=== PATIENT | male | born 1965 | race Two or more races ===

== ENCOUNTER 2018-08-08 13:29 | Inpatient (IN) | payer OTHER ==
[~2018-08-08] VITALS: Ht 180.3 cm; Wt 90.7 kg
[2018-08-08] MEDS ORDERED: fentaNYL PF VIAL 100 MCG/2 ML VIAL IV ONE (14:30)
[2018-08-08] MEDS ORDERED: VANCOMYCIN 1GM IVPB FOR OMNI 250 ML IV ONE (14:30)
--- NOTE | 2018-08-08 14:36 | PHYS DOC ---
Past Medical History Past Medical History: Anxiety, GERD, High Cholesterol, Hypertension, Other Additional Past Medical Histor: CELLULITIS,ATHLETE'S FOOT Past Surgical History: Other Additional Past Surgical Histo: SHOULDER Additional Information: 0.5 PPD Alcohol Use: Heavy Additional Information: DRINKS 10 TO 15 BEERS & SHIWKEY DAILY, ON WEEKENDS DRINKS 20 BEERS & A PINT OF WHISKEY Drug Use: None Adult General Chief Complaint Chief Complaint: TOE PROBLEM HPI HPI 53-year-old male presents to ER with complaints of right foot redness and swelling. Patient reports he was seen on 08/06/18 at [facility] and given a "strong antibiotic shot" and prescribed Bactrim DS and Lotrimin cream. Patient reports yesterday they drove to [place] and returned home today and symptoms have worsened. Patient denies fever or chills, nausea or vomiting, fatigue, chest pain, or palpitations. Patient reports he has had some swelling and right lower leg extending into the foot. Patient denies inability to ambulate but does report he's had increased pain with walking. Review of Systems Review of Systems Constitutional: Denies fever or chills. Denies fatigue Eyes: Denies change in visual acuity, redness, or eye pain [] HENT: Denies nasal congestion or sore throat [] Respiratory: Denies cough or shortness of breath [] Cardiovascular: Denies chest pain or palpitations GI: Denies abdominal pain, nausea, vomiting, bloody stools or diarrhea [] : Denies dysuria or hematuria [] Musculoskeletal: Denies back pain. Reports redness, swelling, and warmth and of right foot with wound on right fourth toe w/drainage. Swelling into rt de jesus Integument: Denies rash or skin lesions [] Neurologic: Denies headache, focal weakness or sensory changes [] All other systems were reviewed and found to be within normal limits, except as documented in this note. Current Medications Current Medications Current Medications Medications (Trade) Dose Ordered Sig/Ara Start Time Stop Time Status Last Admin Dose Admin Fentanyl Citrate (Fentanyl 2ml Vial) 50 mcg 1X ONCE 08/08/18 14:30 08/08/18 14:37 DC 08/08/18 14:54 50 MCG Piperacillin Sod/ Tazobactam Sod 3.375 gm/Sodium Chloride 50 ml @ 100 mls/hr 1X ONCE 08/08/18 15:00 08/08/18 15:29 DC 08/08/18 14:54 100 MLS/HR Vancomycin HCl 250 ml @ 250 mls/hr 1X ONCE 08/08/18 14:30 08/08/18 15:29 UNV Vancomycin HCl 2 gm/Sodium Chloride 500 ml @ 250 mls/hr 1X ONCE 08/08/18 15:00 08/08/18 16:59 08/08/18 15:18 250 MLS/HR Allergies Allergies Allergies Coded Allergies Type Severity Reaction Last Updated Verified No Known Drug Allergies 08/08/18 No Physical Exam Physical Exam Constitutional: Well developed, well nourished, no acute distress, non-toxic appearance. [] HENT: Normocephalic, atraumatic, bilateral ears normal, oropharynx moist, no oral exudates, nose normal. [] Eyes: PERRLA, conjunctiva normal, no discharge. [] Neck: Normal range of motion, no tenderness, supple, no stridor. [] Cardiovascular: Tachycardic heart rate/rhythm- HR 104 on exam, no murmur [] Lungs & Thorax: Bilateral breath sounds clear to auscultation. Resp. equal/ nonlabored Abdomen: Bowel sounds normal, soft, no tenderness, no masses, no pulsatile masses. [] Skin: Warm, dry, no erythema, no rash. [] Back: No tenderness, no CVA tenderness. [] Extremities: No cyanosis, no clubbing, ROM intact. Rt 4th toe w/medial wound with serosanguineous drainage on initial exam which wound cx was obtained from- erythema on dorsal surface of foot w/warmth. No wounds of sole of rt foot. Swelling in rt lower de jesus. Calf size symmetric- no tenderness in bilat. calves. Rt dorsal pedis/pedal 2+ Neurologic: Alert and oriented X 3, normal motor function, normal sensory function, no focal deficits noted. [] Psychologic: Affect normal, judgement normal, mood normal. [] Current Patient Data Vital Signs Vital Signs Date Time Temp Pulse Resp B/P (MAP) Pulse Ox O2 Delivery O2 Flow Rate FiO2 08/08/18 15:13 98 22 154/89 (110) 97 Room Air 08/08/18 13:35 98.9 98.9 Lab Values Laboratory Tests Test 08/08/18 14:42 White Blood Count 8.2 x10^3/uL (4.0-11.0) Red Blood Count 4.78 x10^6/uL (4.30-5.70) Hemoglobin 15.6 g/dL (13.0-17.5) Hematocrit 44.7 % (39.0-53.0) Mean Corpuscular Volume 93 fL (79-100) Mean Corpuscular Hemoglobin 33 pg (25-35) Mean Corpuscular Hemoglobin Concent 35 g/dL (31-37) Red Cell Distribution Width 12.7 % (11.5-14.5) Platelet Count 141 x10^3/uL (140-400) Neutrophils (%) (Auto) 75 % (31-73) H Lymphocytes (%) (Auto) 16 % (24-48) L Monocytes (%) (Auto) 6 % (0-9) Eosinophils (%) (Auto) 2 % (0-3) Basophils (%) (Auto) 1 % (0-3) Neutrophils # (Auto) 6.2 x10^3uL (1.8-7.7) Lymphocytes # (Auto) 1.3 x10^3/uL (1.0-4.8) Monocytes # (Auto) 0.5 x10^3/uL (0.0-1.1) Eosinophils # (Auto) 0.2 x10^3/uL (0.0-0.7) Basophils # (Auto) 0.1 x10^3/uL (0.0-0.2) Sodium Level 139 mmol/L (136-145) Potassium Level 3.6 mmol/L (3.5-5.1) Chloride Level 102 mmol/L (98-107) Carbon Dioxide Level 23 mmol/L (21-32) Anion Gap 14 (6-14) Blood Urea Nitrogen 16 mg/dL (8-26) Creatinine 1.1 mg/dL (0.7-1.3) Estimated GFR (Cockcroft-Gault) 69.8 BUN/Creatinine Ratio 15 (6-20) Glucose Level 186 mg/dL (70-99) H Lactic Acid Level 1.9 mmol/L (0.4-2.0) Calcium Level 9.1 mg/dL (8.5-10.1) Total Bilirubin 0.5 mg/dL (0.2-1.0) Aspartate Amino Transferase (AST) 26 U/L (15-37) Alanine Aminotransferase (ALT) 56 U/L (16-63) Alkaline Phosphatase 123 U/L (46-116) H Total Protein 7.8 g/dL (6.4-8.2) Albumin 3.7 g/dL (3.4-5.0) Albumin/Globulin Ratio 0.9 (1.0-1.7) L Laboratory Tests 08/08/18 14:42 Laboratory Tests 08/08/18 14:42 EKG EKG [] Radiology/Procedures Radiology/Procedures PROCEDURE: FOOT RIGHT 3V Examination: 3 views of the right foot HISTORY: History of right fourth toe cellulitis. COMPARISON: None available FINDINGS: The alignment of the tarsal bones, tarsometatarsal joints, metatarsophalangeal, interphalangeal grossly appears unremarkable.There is mild soft tissue swelling identified in the fourth toe region probably cellulitis. No evidence of cortical disruption to suggest osteomyelitis. IMPRESSION: 1. Mild soft tissue swelling identified in the fourth toe region likely cellulitis. Electronically signed by: Jese Najera MD (08/08/2018 2:42 PM) [facility] DICTATED and SIGNED BY: JESE NJAERA MD DATE: 08/08/18 8782 PROCEDURE: VENOUS LOWER EXTREMITY RIGHT Examination: Right Lower Extremity Venous Doppler Ultrasound History: Right foot cellulitis, pain Comparison: None Procedure: Pitts scale, color flow 2D and spectal waveform analysis images are obtained with and without compression in the area of the common femoral vein, superficial femoral vein - femoral vein junction, main femoral vein (superficial femoral vein) and popliteal vein. Veins of the proximal calf are also imaged. Findings: There is normal duplex flow, color flow and compressibility of all visualized vein segments. No evidence of deep venous thrombus is present. Impression: No evidence of DVT in the visualized right lower extremity venous system. Electronically signed by: Jese Najera MD (08/08/2018 3:20 PM) [facility] DICTATED and SIGNED BY: JSEE NAJERA MD DATE: 08/08/18 1538 Course & Med Decision Making Course & Med Decision Making Pertinent Labs and Imaging studies reviewed. (See chart for details) On initial exam with patient's presentation discussed admission for further care and IV antibiotics and patient is agreeable with this plan. Blood cultures were obtained and patient was started on IV vancomycin and Zosyn while in the ER. Pt was given dose of Fentanyl for pain. Pt had xray of rt foot showing soft tissue swelling reported likely cellulitis- venous US rt LE neg. for DVT. WBCs NL at 8.2 and lactice 1.9- other labs unremarkable as well. 1520: Spoke with Dr. Alcocer, pt's PCP and discussed pt's case and admission plan. Pt has remained neuro/vascular stable in lower extremities while in ER. Wound cx was obtained from rt 4th toe drainage and is pending at time of admit. Dragon Disclaimer Dragon Disclaimer This electronic medical record was generated, in whole or in part, using a voice recognition dictation system. Departure Departure Impression: Primary Impression: Cellulitis of foot, right Disposition: ADMITTED INPATIENT Admitting Physician: Lon Alcocer Condition: STABLE Referrals: LON ALCOCER MD (PCP) MATTHEW FORMAN [employer] Aug 08, 2018 14:36
--- NOTE | 2018-08-08 14:46 | RAD ---
Examination: 3 views of the right foot HISTORY: History of right fourth toe cellulitis. COMPARISON: None available FINDINGS: The alignment of the tarsal bones, tarsometatarsal joints, metatarsophalangeal, interphalangeal grossly appears unremarkable.There is mild soft tissue swelling identified in the fourth toe region probably cellulitis. No evidence of cortical disruption to suggest osteomyelitis. IMPRESSION: 1. Mild soft tissue swelling identified in the fourth toe region likely cellulitis. Electronically signed by: Jese Najera MD (08/08/2018 2:42 PM) [facility]
[2018-08-08 14:53] LABS: BASO # 0.1 x10^3/uL (0.0-0.2); BASO % 1 % (0-3); EOS # 0.2 x10^3/uL (0.0-0.7); EOS % 2 % (0-3); HEMATOCRIT 44.7 % (39.0-53.0); HEMOGLOBIN 15.6 g/dL (13.0-17.5); LYMPH # 1.3 x10^3/uL (1.0-4.8); LYMPH % 16 % (24-48); MEAN CORPUSCULAR HEMOGLOBIN 33 pg (25-35); MEAN CORPUSCULAR HGB CONC 35 g/dL (31-37); MEAN CORPUSCULAR VOLUME 93 fL (79-100); MONO # 0.5 x10^3/uL (0.0-1.1); MONO % 6 % (0-9); NEUT # 6.2 x10^3uL (1.8-7.7); NEUT % 75 % (31-73); PLATELET COUNT 141 x10^3/uL (140-400); RED BLOOD COUNT 4.78 x10^6/uL (4.30-5.70); RED CELL DISTRIBUTION WIDTH 12.7 % (11.5-14.5); WHITE BLOOD COUNT 8.2 x10^3/uL (4.0-11.0)
[2018-08-08] MEDS ORDERED: PIPERACILLIN/TAZOBACTAM 3.375 GM in IV NORMAL SALINE 50ML 50 ML IV ONE (15:00)
[2018-08-08] MEDS ORDERED: VANCOMYCIN 2 GM in IV NORMAL SALINE 500ML BAG 500 ML IV ONE (15:00)
[2018-08-08 15:03] LABS: CALCIUM 9.1 mg/dL (8.5-10.1); CREATININE 1.1 mg/dL (0.7-1.3); GFR 69.8; POTASSIUM 3.6 mmol/L (3.5-5.1)
[2018-08-08 15:08] LABS: ALBUMIN 3.7 g/dL (3.4-5.0); ALBUMIN/GLOBULIN RATIO 0.9 (1.0-1.7); TOTAL BILIRUBIN 0.5 mg/dL (0.2-1.0); TOTAL PROTEIN 7.8 g/dL (6.4-8.2)
--- NOTE | 2018-08-08 15:24 | RAD ---
Examination: Right Lower Extremity Venous Doppler Ultrasound History: Right foot cellulitis, pain Comparison: None Procedure: Pitts scale, color flow 2D and spectal waveform analysis images are obtained with and without compression in the area of the common femoral vein, superficial femoral vein - femoral vein junction, main femoral vein (superficial femoral vein) and popliteal vein. Veins of the proximal calf are also imaged. Findings: There is normal duplex flow, color flow and compressibility of all visualized vein segments. No evidence of deep venous thrombus is present. Impression: No evidence of DVT in the visualized right lower extremity venous system. Electronically signed by: Jese Najera MD (08/08/2018 3:20 PM) [facility]
[2018-08-08] MEDS ORDERED: ACETAMINOPHEN 325 MG TABLET. PO PRN (15:30)
[2018-08-08 16:55] VITALS: BP 158/101
[2018-08-08] MEDS: fentaNYL PF VIAL 100 MCG/2 ML VIAL IV PRN (17:05)
[2018-08-08] MEDS ORDERED: PIP/TAZO PER PHARMACY MC PRN (18:00)
[2018-08-08] MEDS ORDERED: cloNIDine HCL 0.1 MG TABLET PO PRN (18:00)
[2018-08-08] MEDS ORDERED: HYDROcodone/APAP 7.5/325MG 1 TAB TABLET PO PRN (18:00)
[2018-08-08] MEDS: ENOXAPARIN 40 MG/0.4 ML SYRINGE. SQ SCH (18:00)
[2018-08-08] MEDS ORDERED: METO-269 PO (18:04)
[2018-08-08] MEDS ORDERED: OMEP20TA63 PO (18:04)
[2018-08-08] MEDS ORDERED: ALPR0.5T PO (18:04)
[2018-08-08] MEDS ORDERED: ATOR10TA PO (18:04)
[2018-08-08 19:00] VITALS: BP 129/85
[2018-08-08] MEDS: PIPERACILLIN/TAZOBACTAM 3.375 GM in IV NORMAL SALINE 50ML 50 ML IV SCH ×2 (21:00→23:47)
[2018-08-08] MEDS: HYDROcodone/APAP 7.5/325MG 1 TAB TABLET PO PRN (21:00)
[2018-08-08] MEDS: ATORVASTATIN CALCIUM 10 MG TABLET. PO SCH (21:00)
[2018-08-08] MEDS: ALPRAZolam 0.5 MG TABLET PO PRN (21:10)
[2018-08-08 23:00] VITALS: BP 110/64
[2018-08-09 03:00] VITALS: BP 133/84
[2018-08-09] MEDS: HYDROcodone/APAP 7.5/325MG 1 TAB TABLET PO PRN ×3 (03:55→16:33)
[2018-08-09] MEDS: fentaNYL PF VIAL 100 MCG/2 ML VIAL IV PRN ×2 (04:07→14:43)
[2018-08-09] MEDS: PIPERACILLIN/TAZOBACTAM 3.375 GM in IV NORMAL SALINE 50ML 50 ML IV SCH ×3 (05:48→18:18)
[2018-08-09 06:32] LABS: BASO % 1 % (0-3); EOS # 0.2 x10^3/uL (0.0-0.7); EOS % 5 % (0-3); HEMATOCRIT 44.2 % (39.0-53.0); HEMOGLOBIN 15.1 g/dL (13.0-17.5); LYMPH # 0.9 x10^3/uL (1.0-4.8); LYMPH % 23 % (24-48); MEAN CORPUSCULAR HEMOGLOBIN 33 pg (25-35); MEAN CORPUSCULAR HGB CONC 34 g/dL (31-37); MEAN CORPUSCULAR VOLUME 96 fL (79-100); MONO # 0.3 x10^3/uL (0.0-1.1); MONO % 7 % (0-9); NEUT # 2.5 x10^3uL (1.8-7.7); NEUT % 65 % (31-73); PLATELET COUNT 132 x10^3/uL (140-400); RED CELL DISTRIBUTION WIDTH 12.8 % (11.5-14.5); WHITE BLOOD COUNT 3.9 x10^3/uL (4.0-11.0)
[2018-08-09 07:00] VITALS: BP 119/86
[2018-08-09] MEDS: PANTOPRAZOLE 40 MG TABLET.DR. PO SCH (08:26)
[2018-08-09] MEDS: METOPROLOL SUCC 24HR ER 50 MG TAB.ER.24H. PO SCH (08:28)
[2018-08-09 08:45] LABS: CALCIUM 8.4 mg/dL (8.5-10.1); GFR 77.9; POTASSIUM 4.5 mmol/L (3.5-5.1)
[2018-08-09] MEDS ORDERED: DOCUSATE SODIUM 100 MG CAPSULE. PO PRN (09:45)
[2018-08-09] MEDS: DOCUSATE SODIUM 100 MG CAPSULE. PO PRN (10:06)
[2018-08-09 11:00] VITALS: BP 127/80
--- NOTE | 2018-08-09 13:47 | PDOC ---
Infectious Disease Note Vital Sign Vital Signs Vital Signs Date Time Temp Pulse Resp B/P (MAP) Pulse Ox O2 Delivery O2 Flow Rate FiO2 08/09/18 11:06 Room Air 08/09/18 11:00 97.5 68 18 127/80 (96) 97 97.5 Labs Lab Laboratory Tests Test 08/08/18 14:42 08/09/18 05:05 08/09/18 08:20 White Blood Count 8.2 x10^3/uL (4.0-11.0) 3.9 x10^3/uL (4.0-11.0) Red Blood Count 4.78 x10^6/uL (4.30-5.70) 4.60 x10^6/uL (4.30-5.70) Hemoglobin 15.6 g/dL (13.0-17.5) 15.1 g/dL (13.0-17.5) Hematocrit 44.7 % (39.0-53.0) 44.2 % (39.0-53.0) Mean Corpuscular Volume 93 fL (79-100) 96 fL (79-100) Mean Corpuscular Hemoglobin 33 pg (25-35) 33 pg (25-35) Mean Corpuscular Hemoglobin Concent 35 g/dL (31-37) 34 g/dL (31-37) Red Cell Distribution Width 12.7 % (11.5-14.5) 12.8 % (11.5-14.5) Platelet Count 141 x10^3/uL (140-400) 132 x10^3/uL (140-400) Neutrophils (%) (Auto) 75 % (31-73) 65 % (31-73) Lymphocytes (%) (Auto) 16 % (24-48) 23 % (24-48) Monocytes (%) (Auto) 6 % (0-9) 7 % (0-9) Eosinophils (%) (Auto) 2 % (0-3) 5 % (0-3) Basophils (%) (Auto) 1 % (0-3) 1 % (0-3) Neutrophils # (Auto) 6.2 x10^3uL (1.8-7.7) 2.5 x10^3uL (1.8-7.7) Lymphocytes # (Auto) 1.3 x10^3/uL (1.0-4.8) 0.9 x10^3/uL (1.0-4.8) Monocytes # (Auto) 0.5 x10^3/uL (0.0-1.1) 0.3 x10^3/uL (0.0-1.1) Eosinophils # (Auto) 0.2 x10^3/uL (0.0-0.7) 0.2 x10^3/uL (0.0-0.7) Basophils # (Auto) 0.1 x10^3/uL (0.0-0.2) 0.0 x10^3/uL (0.0-0.2) Sodium Level 139 mmol/L (136-145) 139 mmol/L (136-145) Potassium Level 3.6 mmol/L (3.5-5.1) 4.5 mmol/L (3.5-5.1) Chloride Level 102 mmol/L (98-107) 103 mmol/L (98-107) Carbon Dioxide Level 23 mmol/L (21-32) 27 mmol/L (21-32) Anion Gap 14 (6-14) 9 (6-14) Blood Urea Nitrogen 16 mg/dL (8-26) 17 mg/dL (8-26) Creatinine 1.1 mg/dL (0.7-1.3) 1.0 mg/dL (0.7-1.3) Estimated GFR (Cockcroft-Gault) 69.8 77.9 BUN/Creatinine Ratio 15 (6-20) Glucose Level 186 mg/dL (70-99) 117 mg/dL (70-99) Lactic Acid Level 1.9 mmol/L (0.4-2.0) Calcium Level 9.1 mg/dL (8.5-10.1) 8.4 mg/dL (8.5-10.1) Total Bilirubin 0.5 mg/dL (0.2-1.0) Aspartate Amino Transf (AST/SGOT) 26 U/L (15-37) Alanine Aminotransferase (ALT/SGPT) 56 U/L (16-63) Alkaline Phosphatase 123 U/L (46-116) Total Protein 7.8 g/dL (6.4-8.2) Albumin 3.7 g/dL (3.4-5.0) Albumin/Globulin Ratio 0.9 (1.0-1.7) Objective Assessment Cellulitis of right foot Tinea pedis Leukopenia HTN Plan Plan of Care Continue vanc and Zosyn Add anti-fungal agent, fluconazole Repeat CBC in am Monitor renal function closely f/u culture Local wound care Await Ortho eval D/w Dr. Abarca Thank you Pt seen and examined. Chart reviewed in detail. 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 Agree with above plan GENEVIEVE GOSS APRN Aug 09, 2018 13:47 ENRIQUE ABARCA MD Aug 09, 2018 19:02
[2018-08-09] MEDS ORDERED: VANCOMYCIN 2 GM in IV NORMAL SALINE 500ML BAG 500 ML IV ONE (14:00)
[2018-08-09 15:00] VITALS: BP 114/83
[2018-08-09] MEDS: VANCOMYCIN PER PHARMACY MC PRN ×2 (15:41→15:43)
--- NOTE | 2018-08-09 16:16 | HP ---
ADMIT DATE: 08/08/2018 CHIEF COMPLAINT: Right foot pain. HISTORY OF PRESENT ILLNESS AND HOSPITAL COURSE: This patient is a 53-year-old male who states that he is having issues with athlete's foot and scratched to the point where he developed a sore. He used [id number] preparations, but his foot became increasingly painful. He noticed drainage consistent with infection and pus. He went to urgent care where he was treated for toe ulcer and mild cellulitis. The symptoms did not improve with Bactrim-DS. He apparently was also given a shot of Rocephin with plans to receive Rocephin as an outpatient, but the patient did not follow up. He did travel by car to [facility] for several days and his foot became worse. He came back to [place] where he was seen in the ER with increasing redness and pain between the first and second great toe on the right. He had evidence of pus, swelling and striations towards the front part of his calf and leg. Due to the progressive nature and severity of symptoms and failure of outpatient antibiotics, he was admitted for IV antibiotics, Infectious Disease consultation and Wound Care evaluation and management. PAST MEDICAL HISTORY: Significant for: 1. Hypertension. 2. High cholesterol. 3. Reflux esophagitis. 4. Alcohol dependence/abuse. FAMILY HISTORY: Significant for mother who is alive, diagnosed with hypertension, and the father who is with history of lung cancer. PAST SURGICAL HISTORY: The patient's only previous surgery is left shoulder scope. SOCIAL HISTORY: He lives with his . He smokes half pack per day. He drinks at least a 6-pack of alcohol daily with shots of whiskey. He works at a [employer]. ALLERGIES: The patient has no known drug allergies. REVIEW OF SYSTEMS: Negative for fever, cough, congestion, nausea, vomiting, diarrhea, weight loss, weight gain, fever or chills. The patient only has pain to his right lower extremity, which has been increasing with pain up into his calf. PHYSICAL EXAMINATION: GENERAL: A well-nourished, well-developed male, in no apparent distress. He is alert and oriented x 3. HEENT: Benign. NECK: Supple, without JVD or bruits. CARDIAC: Regular rate and rhythm. LUNGS: Clear. ABDOMEN: Soft, nontender, without masses. EXTREMITIES: 2+ pulses bilaterally with redness and pussy exudate to toe ulcer between first and second digit. He had swelling with questionable area of fluctuance under the right first and second metatarsal heads. He had some swelling up to the foot and pain up into his calf. ASSESSMENT: Cellulitis of right lower extremity. PLAN: To proceed with IV antibiotics, Infectious Disease consultation and surgical evaluation. Of note, foot x-ray does not reveal evidence of bony destruction and lower extremity Doppler did not reveal evidence of DVT. HANK ESCOBAR MD DR: BRENDA/alley JOB#: [id number] / [id number]
[2018-08-09] MEDS: FLUCONAZOLE 200MG/100ML PREMIX 100 ML IV SCH (17:19)
[2018-08-09] MEDS: ENOXAPARIN 40 MG/0.4 ML SYRINGE. SQ SCH (18:20)
[2018-08-09 19:00] VITALS: BP 127/86
[2018-08-09 23:00] VITALS: BP 127/86
[2018-08-10] VITALS (7 sets, daily range): BP systolic 122–158; BP diastolic 80–94
[2018-08-10] MEDS: PIPERACILLIN/TAZOBACTAM 3.375 GM in IV NORMAL SALINE 50ML 50 ML IV SCH ×4 (00:41→19:53)
[2018-08-10] MEDS: LACTOBACILLUS RHAMNOSUS GG 1 CAPSULE. PO SCH ×3 (00:41→20:01)
[2018-08-10] MEDS: ATORVASTATIN CALCIUM 10 MG TABLET. PO SCH ×2 (00:41→20:01)
[2018-08-10 03:38] LABS: BASO % 1 % (0-3); EOS # 0.2 x10^3/uL (0.0-0.7); EOS % 7 % (0-3); HEMATOCRIT 42.9 % (39.0-53.0); HEMOGLOBIN 14.7 g/dL (13.0-17.5); LYMPH # 1.4 x10^3/uL (1.0-4.8); LYMPH % 36 % (24-48); MEAN CORPUSCULAR HEMOGLOBIN 33 pg (25-35); MEAN CORPUSCULAR HGB CONC 34 g/dL (31-37); MEAN CORPUSCULAR VOLUME 95 fL (79-100); MONO # 0.3 x10^3/uL (0.0-1.1); MONO % 9 % (0-9); NEUT # 1.8 x10^3uL (1.8-7.7); NEUT % 47 % (31-73); PLATELET COUNT 138 x10^3/uL (140-400); RED BLOOD COUNT 4.52 x10^6/uL (4.30-5.70); RED CELL DISTRIBUTION WIDTH 12.6 % (11.5-14.5); WHITE BLOOD COUNT 3.7 x10^3/uL (4.0-11.0)
[2018-08-10] MEDS: VANCOMYCIN 1.5 GM in IV NORMAL SALINE 500ML BAG 500 ML IV SCH ×2 (05:21→14:35)
[2018-08-10] MEDS: HYDROcodone/APAP 7.5/325MG 1 TAB TABLET PO PRN ×3 (05:28→20:01)
[2018-08-10] MEDS: PANTOPRAZOLE 40 MG TABLET.DR. PO SCH (05:28)
--- NOTE | 2018-08-10 06:02 | CONS ---
DATE OF CONSULTATION: 08/09/2018 CONSULTATION DICTATING PHYSICIAN: This is Power An, nurse practitioner dictating for Dr. Shakira Loving, Infectious Disease. REFERRING PHYSICIAN: Lon Alcocer M.D. REASON FOR CONSULTATION: Cellulitis. HISTORY OF PRESENT ILLNESS: This patient is a 53-year-old nondiabetic male who noticed that his skin was peeling between his toes. About a week ago, he found an OTC product at [facility] to treat. He applied the cream as directed, took a shower. As he was drying his foot off, he noticed some irritation and bleeding. He put his sock on and the next day, went to work. A few days later, he developed a swelling, pain and drainage of his third right toe. He was seen by his PCP and given an antibiotic injection along with a prescription for Bactrim. He traveled to [place] and on return home, did not notice any improvement. In fact, the swelling spread up towards his knee and the redness was worsening. He denies fevers, chills, sweats or body aches. An x-ray of the right foot showed mild soft tissue swelling identified in the fourth toe region, likely cellulitis. No evidence of cortical disruption to suggest osteomyelitis. He was dosed with vancomycin and Zosyn. ID has been asked to consult for further evaluation and antibiotic management. PAST MEDICAL HISTORY: Hyperlipidemia, hypertension, gastroesophageal reflux, arthritis of hands, carpal tunnel syndrome and anxiety. PAST SURGICAL HISTORY: Left shoulder scope. FAMILY HISTORY: Positive for hypertension and lung cancer. SOCIAL HISTORY: The patient is and lives at home. He smokes half a pack per day. He drinks at least a 6-pack of alcohol daily with shots of whiskey. He works at a [employer]. ALLERGIES: No known drug allergies. MEDICATIONS: Vancomycin and Zosyn. Other medications are available and have been reviewed on the JAN. REVIEW OF SYSTEMS: Per HPI. Denies headaches, nasal/sinus congestion or sore throat. Denies shortness of air, cough or wheezing. Denies chest pain or palpitations. Denies nausea, vomiting or diarrhea. PHYSICAL EXAMINATION: GENERAL: The patient is propped up in bed and alert, in no apparent distress. VITAL SIGNS: Afebrile, blood pressure 127/80, heart rate 68, respiratory rate 18, pulse oximetry 97% on room air and BMI 27. HEENT: Pupils equally round. Normal conjunctivae. Oral cavity, pharynx pink and moist. NECK: Supple. LUNGS: Clear to auscultation. HEART: S1 and S2. ABDOMEN: Obese. Bowel sounds active. Soft and nontender. EXTREMITIES: Unremarkable except left lower extremity edema. A third right toe is swollen and red. He has maceration and some ulcerations between the toes with drainage. Dorsalis pedis pulse palpable. SKIN: Warm without generalized rash. NEUROLOGICAL: Alert and oriented. LABORATORY DATA: Today's WBC 3.9 from 8.2 on admission; hemoglobin 15.1 and platelet count 132,000. Creatinine 1.0 and BUN 17. Electrolytes are unremarkable. Glucose 117. Lactic acid 1.9, total bilirubin 0.5, AST 26, ALT 56 and albumin 3.7. Blood cultures negative to date. RADIOLOGICAL DATA: Foot x-ray per HPI. Venous Doppler ultrasound showed no evidence of DVT. IMPRESSION: 1. Cellulitis of right foot. 2. Tinea pedis. 3. Leukopenia. 4. Hypertension. PLAN: Continue the vancomycin and Zosyn. Add an antifungal agent, fluconazole. Repeat CBC in the morning. Monitor renal function closely. We will follow up on culture results. Local wound care. Ortho has been consulted. Thank you, Dr. Alcocer for asking us to participate in this patient's care. Should you have further questions or concerns, please call. ENRIQUE LOVING MD DR: DMITRI/alley JOB#: [id number] / [id number]
[2018-08-10] MEDS: METOPROLOL SUCC 24HR ER 50 MG TAB.ER.24H. PO SCH (08:45)
--- NOTE | 2018-08-10 08:53 | PDOC ---
PROGRESS NOTES Subjective Subjective Patient feeling better. less foot pain. Objective Objective Vital Signs Date Time Temp Pulse Resp B/P (MAP) Pulse Ox O2 Delivery O2 Flow Rate FiO2 08/10/18 08:45 61 139/94 08/10/18 07:00 97.8 16 97 Room Air 97.8 Intake and Output 08/10/18 07:00 Intake Total 240 ml Balance 240 ml Intake Oral 240 ml # Voids 4 Physical Exam Abdomen: Normal bowel sounds Heart: Regular rate Extremities: Other (right foot swelling and redness improving. exudate noted) General: Alert Assessment Assessment Problems Medical Problems: (1) Cellulitis of foot, right Status: Acute Cellulitis of right lower extremity. HTN HLD High BS ETOH dependance suspected Plan Plan of Care Continue IV antibx Check A1C Await ORTHO recc Consider sono or MRI Await wound Clx Comment Review of Relevant I have reviewed the following items raman (where applicable) has been applied. Labs Laboratory Tests Test 08/08/18 14:42 08/09/18 05:05 08/09/18 08:20 08/10/18 03:15 White Blood Count 8.2 x10^3/uL (4.0-11.0) 3.9 x10^3/uL (4.0-11.0) 3.7 x10^3/uL (4.0-11.0) Red Blood Count 4.78 x10^6/uL (4.30-5.70) 4.60 x10^6/uL (4.30-5.70) 4.52 x10^6/uL (4.30-5.70) Hemoglobin 15.6 g/dL (13.0-17.5) 15.1 g/dL (13.0-17.5) 14.7 g/dL (13.0-17.5) Hematocrit 44.7 % (39.0-53.0) 44.2 % (39.0-53.0) 42.9 % (39.0-53.0) Mean Corpuscular Volume 93 fL (79-100) 96 fL (79-100) 95 fL (79-100) Mean Corpuscular Hemoglobin 33 pg (25-35) 33 pg (25-35) 33 pg (25-35) Mean Corpuscular Hemoglobin Concent 35 g/dL (31-37) 34 g/dL (31-37) 34 g/dL (31-37) Red Cell Distribution Width 12.7 % (11.5-14.5) 12.8 % (11.5-14.5) 12.6 % (11.5-14.5) Platelet Count 141 x10^3/uL (140-400) 132 x10^3/uL (140-400) 138 x10^3/uL (140-400) Neutrophils (%) (Auto) 75 % (31-73) 65 % (31-73) 47 % (31-73) Lymphocytes (%) (Auto) 16 % (24-48) 23 % (24-48) 36 % (24-48) Monocytes (%) (Auto) 6 % (0-9) 7 % (0-9) 9 % (0-9) Eosinophils (%) (Auto) 2 % (0-3) 5 % (0-3) 7 % (0-3) Basophils (%) (Auto) 1 % (0-3) 1 % (0-3) 1 % (0-3) Neutrophils # (Auto) 6.2 x10^3uL (1.8-7.7) 2.5 x10^3uL (1.8-7.7) 1.8 x10^3uL (1.8-7.7) Lymphocytes # (Auto) 1.3 x10^3/uL (1.0-4.8) 0.9 x10^3/uL (1.0-4.8) 1.4 x10^3/uL (1.0-4.8) Monocytes # (Auto) 0.5 x10^3/uL (0.0-1.1) 0.3 x10^3/uL (0.0-1.1) 0.3 x10^3/uL (0.0-1.1) Eosinophils # (Auto) 0.2 x10^3/uL (0.0-0.7) 0.2 x10^3/uL (0.0-0.7) 0.2 x10^3/uL (0.0-0.7) Basophils # (Auto) 0.1 x10^3/uL (0.0-0.2) 0.0 x10^3/uL (0.0-0.2) 0.0 x10^3/uL (0.0-0.2) Sodium Level 139 mmol/L (136-145) 139 mmol/L (136-145) Potassium Level 3.6 mmol/L (3.5-5.1) 4.5 mmol/L (3.5-5.1) Chloride Level 102 mmol/L (98-107) 103 mmol/L (98-107) Carbon Dioxide Level 23 mmol/L (21-32) 27 mmol/L (21-32) Anion Gap 14 (6-14) 9 (6-14) Blood Urea Nitrogen 16 mg/dL (8-26) 17 mg/dL (8-26) Creatinine 1.1 mg/dL (0.7-1.3) 1.0 mg/dL (0.7-1.3) Estimated GFR (Cockcroft-Gault) 69.8 77.9 BUN/Creatinine Ratio 15 (6-20) Glucose Level 186 mg/dL (70-99) 117 mg/dL (70-99) Lactic Acid Level 1.9 mmol/L (0.4-2.0) Calcium Level 9.1 mg/dL (8.5-10.1) 8.4 mg/dL (8.5-10.1) Total Bilirubin 0.5 mg/dL (0.2-1.0) Aspartate Amino Transf (AST/SGOT) 26 U/L (15-37) Alanine Aminotransferase (ALT/SGPT) 56 U/L (16-63) Alkaline Phosphatase 123 U/L (46-116) Total Protein 7.8 g/dL (6.4-8.2) Albumin 3.7 g/dL (3.4-5.0) Albumin/Globulin Ratio 0.9 (1.0-1.7) Laboratory Tests Test 08/10/18 03:15 White Blood Count 3.7 x10^3/uL (4.0-11.0) Red Blood Count 4.52 x10^6/uL (4.30-5.70) Hemoglobin 14.7 g/dL (13.0-17.5) Hematocrit 42.9 % (39.0-53.0) Mean Corpuscular Volume 95 fL (79-100) Mean Corpuscular Hemoglobin 33 pg (25-35) Mean Corpuscular Hemoglobin Concent 34 g/dL (31-37) Red Cell Distribution Width 12.6 % (11.5-14.5) Platelet Count 138 x10^3/uL (140-400) Neutrophils (%) (Auto) 47 % (31-73) Lymphocytes (%) (Auto) 36 % (24-48) Monocytes (%) (Auto) 9 % (0-9) Eosinophils (%) (Auto) 7 % (0-3) Basophils (%) (Auto) 1 % (0-3) Neutrophils # (Auto) 1.8 x10^3uL (1.8-7.7) Lymphocytes # (Auto) 1.4 x10^3/uL (1.0-4.8) Monocytes # (Auto) 0.3 x10^3/uL (0.0-1.1) Eosinophils # (Auto) 0.2 x10^3/uL (0.0-0.7) Basophils # (Auto) 0.0 x10^3/uL (0.0-0.2) Microbiology 08/08/18 Blood Culture - Preliminary, Resulted NO GROWTH AFTER 1 DAY Medications Current Medications Fentanyl Citrate (Fentanyl 2ml Vial) 50 mcg 1X ONCE IV Last administered on at 14:54; Start 08/08/18 at 14:30; Stop 08/08/18 at 14:37; Status DC Vancomycin HCl 250 ml @ 250 mls/hr 1X ONCE IV ; Start 08/08/18 at 14:30; Stop 08/08/18 at 15:29; Status UNV Piperacillin Sod/ Tazobactam Sod 3.375 gm/Sodium Chloride 50 ml @ 100 mls/hr 1X ONCE IV Last administered on 08/08/18at 14:54; Start 08/08/18 at 15:00; Stop 08/08/18 at 15:29; Status DC Vancomycin HCl 2 gm/Sodium Chloride 500 ml @ 250 mls/hr 1X ONCE IV Last administered on 08/08/18at 15:18; Start 08/08/18 at 15:00; Stop 08/08/18 at 16:59 ; Status DC Fentanyl Citrate (Fentanyl 2ml Vial) 50 mcg PRN Q4HRS PRN IV PAIN Last administered on 08/09/18at 14:43; Start 08/08/18 at 15:30; Stop 08/09/18 at 15:29 ; Status DC Acetaminophen (Tylenol) 650 mg PRN Q4HRS PRN PO FEVER; Start 08/08/18 at 15:30 ; Stop 08/09/18 at 15:29; Status DC Acetaminophen/ Hydrocodone Bitart (Lortab 7.5/325) 1 tab PRN Q6HRS PRN PO MODERATE PAIN; Start 08/08/18 at 18:00 Acetaminophen/ Hydrocodone Bitart (Lortab 7.5/325) 2 tab PRN Q6HRS PRN PO SEVERE PAIN Last administered on 08/10/18 05:28; Start 08/08/18 at 18:00 Enoxaparin Sodium (Lovenox 40mg Syringe) 40 mg Q24H SQ Last administered on 18:20; Start 08/08/18 at 18:00 Piperacillin Sod/ Tazobactam Sod (Zosyn Per Pharmacy) 1 each PRN DAILY PRN MC SEE COMMENTS; Start 08/08/18 at 18:00 Clonidine HCl (Catapres) 0.1 mg PRN Q3HRS PRN PO HYPERTENSION, SEE COMMENTS; Start 08/08/18 at 18:00 Piperacillin Sod/ Tazobactam Sod 3.375 gm/Sodium Chloride 50 ml @ 100 mls/hr Q6HRS IV Last administered on 08/10/18 05:22; Start 08/08/18 at 19:30 Alprazolam (Xanax) 0.5 mg PRN DAILY PRN PO ANXIETY / AGITATION Last administered on 08/08/18at 21:10; Start 08/08/18 at 18:15 Atorvastatin Calcium (Lipitor) 10 mg QHS PO Last administered on 08/10/18 00: 41; Start 08/08/18 at 21:00 Metoprolol Succinate (Toprol Xl) 50 mg DAILY PO Last administered on 08/10/18 08:45; Start 08/09/18 at 09:00 Pantoprazole Sodium (Protonix) 40 mg DAILYAC PO Last administered on 08/10/18 05:28; Start 08/09/18 at 07:30 Lactobacillus Rhamnosus (Culturelle) 1 cap BID PO Last administered on 10/1/ 18at 08:42; Start 08/09/18 at 21:00 Docusate Sodium (Colace) 100 mg PRN DAILY PRN PO CONSTIPATION Last administered on 08/09/18at 10:06; Start 08/09/18 at 09:45 Docusate Sodium (Colace) 100 mg PRN DAILY PRN PO CONSTIPATION; Start 08/09/18 at 09:45; Status UNV Vancomycin HCl (Vanco Per Pharmacy) 1 each PRN DAILY PRN MC SEE COMMENTS Last administered on 08/09/18at 15:43; Start 08/09/18 at 13:45 Vancomycin HCl 2 gm/Sodium Chloride 500 ml @ 250 mls/hr 1X ONCE IV Last administered on 08/09/18at 14:43; Start 08/09/18 at 14:00; Stop 08/09/18 at 15:59 ; Status DC Vancomycin HCl 1.5 gm/Sodium Chloride 500 ml @ 250 mls/hr Q12H IV Last administered on 08/10/18at 05:21; Start 08/10/18 at 03:00 Vancomycin HCl (Vancomycin Trough Level) 1 each 1X ONCE MC ; Start 08/11/18 at 02:30; Stop 08/11/18 at 02:31 Fluconazole/ Sodium Chloride 100 ml @ 100 mls/hr Q24H IV Last administered on 08/09/18at 17:19; Start 08/09/18 at 17:00 Active Scripts Active Reported Xanax (Alprazolam) 0.5 Mg Tablet 0.5 Mg PO DAILY PRN Prilosec Otc (Omeprazole Magnesium) 20 Mg Tablet.dr 1 Tab PO DAILY Lipitor (Atorvastatin Calcium) 10 Mg Tablet 1 Tab PO DAILY Toprol Xl (Metoprolol Succinate) 50 Mg Tab.er.24h 50 Mg PO DAILY Vitals/I & O Vital Sign - Last 24 Hours 08/09/18 08/09/18 08/09/18 08/09/18 10:06 11:00 14:43 15:00 Temp 97.5 97.8 97.5 97.8 Pulse 68 58 Resp 18 18 B/P (MAP) 127/80 (96) 114/83 (93) Pulse Ox 97 95 O2 Delivery Room Air Room Air Room Air Room Air 08/09/18 08/09/18 08/09/18 08/10/18 16:33 19:00 20:00 00:43 Temp 97.8 98.0 97.8 98.0 Pulse 55 77 Resp 18 18 B/P (MAP) 127/86 (100) 133/82 (99) Pulse Ox 98 92 O2 Delivery Room Air Room Air Room Air Room Air 08/10/18 08/10/18 08/10/18 08/10/18 03:00 05:28 06:28 07:00 Temp 97.9 97.8 97.9 97.8 Pulse 73 61 Resp 18 20 20 16 B/P (MAP) 122/80 (94) 139/94 (109) Pulse Ox 98 98 98 97 O2 Delivery Room Air Room Air Room Air Room Air 08/10/18 08:45 Pulse 61 B/P (MAP) 139/94 Intake and Output 08/09/18 08/09/18 08/10/18 15:00 23:00 07:00 Intake Total 240 ml Balance 240 ml HANK ESCOBAR MD Aug 10, 2018 08:53
--- NOTE | 2018-08-10 10:12 | PDOC ---
Infectious Disease Note Subjective Subjective pt is feeling better ROS ROS no n/v/d/sob Vital Sign Vital Signs Vital Signs Date Time Temp Pulse Resp B/P (MAP) Pulse Ox O2 Delivery O2 Flow Rate FiO2 08/10/18 08:45 61 139/94 08/10/18 07:00 97.8 16 97 Room Air 97.8 Physical Exam PHYSICAL EXAM GENERAL: The patient is propped up in bed and alert, in no apparent distress. VITAL SIGNS: Afebrile, HEENT: Pupils equally round. Normal conjunctivae. Oral cavity, pharynx pink and moist. NECK: Supple. LUNGS: Clear to auscultation. HEART: S1 and S2. ABDOMEN: Obese. Bowel sounds active. Soft and nontender. EXTREMITIES: Unremarkable except left lower extremity edema. A third right toe is swollen and red. He has maceration and some ulcerations between the toes with drainage. Dorsalis pedis pulse palpable. SKIN: Warm without generalized rash. NEUROLOGICAL: Alert and oriented. Labs Lab Laboratory Tests Test 08/10/18 03:15 White Blood Count 3.7 x10^3/uL (4.0-11.0) Red Blood Count 4.52 x10^6/uL (4.30-5.70) Hemoglobin 14.7 g/dL (13.0-17.5) Hematocrit 42.9 % (39.0-53.0) Mean Corpuscular Volume 95 fL (79-100) Mean Corpuscular Hemoglobin 33 pg (25-35) Mean Corpuscular Hemoglobin Concent 34 g/dL (31-37) Red Cell Distribution Width 12.6 % (11.5-14.5) Platelet Count 138 x10^3/uL (140-400) Neutrophils (%) (Auto) 47 % (31-73) Lymphocytes (%) (Auto) 36 % (24-48) Monocytes (%) (Auto) 9 % (0-9) Eosinophils (%) (Auto) 7 % (0-3) Basophils (%) (Auto) 1 % (0-3) Neutrophils # (Auto) 1.8 x10^3uL (1.8-7.7) Lymphocytes # (Auto) 1.4 x10^3/uL (1.0-4.8) Monocytes # (Auto) 0.3 x10^3/uL (0.0-1.1) Eosinophils # (Auto) 0.2 x10^3/uL (0.0-0.7) Basophils # (Auto) 0.0 x10^3/uL (0.0-0.2) Micro Microbiology 08/08/18 Blood Culture - Preliminary, Resulted NO GROWTH AFTER 1 DAY Objective Assessment 1. Cellulitis of right foot. there is a wound on toe, depth cannot be judged 2. Tinea pedis. 3. Leukopenia. 4. Hypertension. Plan Plan of Care Continue vanc and Zosyn Add anti-fungal agent, fluconazole Repeat CBC in am Monitor renal function closely f/u culture Local wound care Await Ortho eval may need MRI foot JAVIER VELAZQUEZ MD Aug 10, 2018 10:12
[2018-08-10] MEDS ORDERED: fentaNYL PF VIAL 100 MCG/2 ML VIAL IV PRN (10:30)
[2018-08-10] MEDS: VANCOMYCIN PER PHARMACY MC PRN (13:44)
--- NOTE | 2018-08-10 15:40 | PDOC2 ---
CONSULT Date of Consult Date of Consult DATE: 08/10/18 TIME: 15:27 Reason for Consult Reason for Consult: left 4th toe cellulitis Identification/Chief Complaint Chief Complaint left toe swelling Source Source: Chart review, Patient History of Present Illness Reason for Visit: The paticas is a 53 year old male with left toe swelling and drainage. He states he had Athlete's foot and got some OTC exfoliating cream at [facility] and used it in the shower. He peeled some of the skin from between his 3rd and 4th toes one week ago and noticed it was bleeding. The next few days he noticed swelling and redness of his toe. He went to [facility] where he received IM antibiotics. He states he was scheduled to have IM abx 3 days in a row, but traveled to [place] and the toe got worse. Since he has been on IV antibiotics here, he states has gotten much better. He shows me pictures on his phone, which show the erythema and swelling has decreased significantly. No history of diabetes or kidney disease. Past Medical History Cardiovascular: HTN, Hyperlipidemia GI: GERD Past Surgical History Past Surgical History: Other (left shoulder arthroscopy ) Family History Family History: Cancer (lung), Hypertension Social History <1 pack per day (1/2 ppd) ALCOHOL: heavy (6 pack of beer/day plus whiskey) Lives: with Family Current Problem List Problem List Problems Medical Problems: (1) Cellulitis of foot, right Status: Acute Current Medications Current Medications Current Medications Fentanyl Citrate (Fentanyl 2ml Vial) 50 mcg 1X ONCE IV Last administered on at 14:54; Start 08/08/18 at 14:30; Stop 08/08/18 at 14:37; Status DC Vancomycin HCl 250 ml @ 250 mls/hr 1X ONCE IV ; Start 08/08/18 at 14:30; Stop 08/08/18 at 15:29; Status UNV Piperacillin Sod/ Tazobactam Sod 3.375 gm/Sodium Chloride 50 ml @ 100 mls/hr 1X ONCE IV Last administered on 08/08/18at 14:54; Start 08/08/18 at 15:00; Stop 08/08/18 at 15:29; Status DC Vancomycin HCl 2 gm/Sodium Chloride 500 ml @ 250 mls/hr 1X ONCE IV Last administered on 08/08/18at 15:18; Start 08/08/18 at 15:00; Stop 08/08/18 at 16:59 ; Status DC Fentanyl Citrate (Fentanyl 2ml Vial) 50 mcg PRN Q4HRS PRN IV PAIN Last administered on 08/09/18at 14:43; Start 08/08/18 at 15:30; Stop 08/09/18 at 15:29 ; Status DC Acetaminophen (Tylenol) 650 mg PRN Q4HRS PRN PO FEVER; Start 08/08/18 at 15:30 ; Stop 08/09/18 at 15:29; Status DC Acetaminophen/ Hydrocodone Bitart (Lortab 7.5/325) 1 tab PRN Q6HRS PRN PO MODERATE PAIN; Start 08/08/18 at 18:00 Acetaminophen/ Hydrocodone Bitart (Lortab 7.5/325) 2 tab PRN Q6HRS PRN PO SEVERE PAIN Last administered on 08/10/18at 13:16; Start 08/08/18 at 18:00 Enoxaparin Sodium (Lovenox 40mg Syringe) 40 mg Q24H SQ Last administered on at 18:20; Start 08/08/18 at 18:00 Piperacillin Sod/ Tazobactam Sod (Zosyn Per Pharmacy) 1 each PRN DAILY PRN MC SEE COMMENTS; Start 08/08/18 at 18:00 Clonidine HCl (Catapres) 0.1 mg PRN Q3HRS PRN PO HYPERTENSION, SEE COMMENTS; Start 08/08/18 at 18:00 Piperacillin Sod/ Tazobactam Sod 3.375 gm/Sodium Chloride 50 ml @ 100 mls/hr Q6HRS IV Last administered on 08/10/18at 13:16; Start 08/08/18 at 19:30 Alprazolam (Xanax) 0.5 mg PRN DAILY PRN PO ANXIETY / AGITATION Last administered on 08/08/18at 21:10; Start 08/08/18 at 18:15 Atorvastatin Calcium (Lipitor) 10 mg QHS PO Last administered on 08/10/18at 00: 41; Start 08/08/18 at 21:00 Metoprolol Succinate (Toprol Xl) 50 mg DAILY PO Last administered on 08/10/18at 08:45; Start 08/09/18 at 09:00 Pantoprazole Sodium (Protonix) 40 mg DAILYAC PO Last administered on 08/10/18at 05:28; Start 08/09/18 at 07:30 Lactobacillus Rhamnosus (Culturelle) 1 cap BID PO Last administered on at 08:42; Start 08/09/18 at 21:00 Docusate Sodium (Colace) 100 mg PRN DAILY PRN PO CONSTIPATION Last administered on 08/09/18at 10:06; Start 08/09/18 at 09:45 Docusate Sodium (Colace) 100 mg PRN DAILY PRN PO CONSTIPATION; Start 08/09/18 at 09:45; Status UNV Vancomycin HCl (Vanco Per Pharmacy) 1 each PRN DAILY PRN MC SEE COMMENTS Last administered on 08/10/18at 13:44; Start 08/09/18 at 13:45 Vancomycin HCl 2 gm/Sodium Chloride 500 ml @ 250 mls/hr 1X ONCE IV Last administered on 08/09/18at 14:43; Start 08/09/18 at 14:00; Stop 08/09/18 at 15:59 ; Status DC Vancomycin HCl 1.5 gm/Sodium Chloride 500 ml @ 250 mls/hr Q12H IV Last administered on 08/10/18at 14:35; Start 08/10/18 at 03:00 Vancomycin HCl (Vancomycin Trough Level) 1 each 1X ONCE MC ; Start 08/11/18 at 02:30; Stop 08/11/18 at 02:31 Fluconazole/ Sodium Chloride 100 ml @ 100 mls/hr Q24H IV Last administered on 08/09/18at 17:19; Start 08/09/18 at 17:00 Fentanyl Citrate (Fentanyl 2ml Vial) 50 mcg PRN Q3HRS PRN IV PAIN Last administered on 08/10/18at 10:34; Start 08/10/18 at 10:30 Active Scripts Active Reported Xanax (Alprazolam) 0.5 Mg Tablet 0.5 Mg PO DAILY PRN Prilosec Otc (Omeprazole Magnesium) 20 Mg Tablet.dr 1 Tab PO DAILY Lipitor (Atorvastatin Calcium) 10 Mg Tablet 1 Tab PO DAILY Toprol Xl (Metoprolol Succinate) 50 Mg Tab.er.24h 50 Mg PO DAILY Allergies Allergies: Coded Allergies: No Known Drug Allergies (Unverified , 08/08/18) ROS General: No: Chills, Night Sweats Eyes: No Decreased vision HEENT: No: Heacaches, Visual Changes, Hearing change Hematological and Lymphatic: No: Bleeding Problems, Blood Clots Respiratory: No: Cough, Shortness of breath Cardiovascular: No Chest Pain Gastrointestinal: No Nausea, No Vomiting, No Diarrhea, No Constipation Musculoskeletal: Yes Swelling In: (left fourth toe) Physical Exam General: Alert, Oriented X3, Cooperative, No acute distress HEENT: Atraumatic, EOMI Lungs: Normal air movement Heart: Regular rate Abdomen: Soft Extremities: No clubbing, No cyanosis, Normal pulses Skin: No rashes, Other (Maceration and small opening between 3rd and 4th toes with bloody drainage. No other lesions or ulcers identified ) Neuro: Normal speech, Sensation intact Psych/Mental Status: Mental status NL, Mood NL MUSCULOSKELETAL: Other (Lesion between left 3rd and 4th toes as described above. No tenderness to palpation of MCP joints or elsewhere on foot. Minimal erythema and swelling. Range of motion intact at foot and toes, without pain. Peripheral pulses and light touch sensation intact. ) Vitals VITALS Vital Signs Date Time Temp Pulse Resp B/P (MAP) Pulse Ox O2 Delivery O2 Flow Rate FiO2 08/10/18 14:27 16 Room Air 08/10/18 11:00 97.7 63 129/88 (102) 95 97.7 Labs Labs Laboratory Tests Test 08/09/18 05:05 08/09/18 08:20 08/10/18 03:15 White Blood Count 3.9 x10^3/uL (4.0-11.0) 3.7 x10^3/uL (4.0-11.0) Red Blood Count 4.60 x10^6/uL (4.30-5.70) 4.52 x10^6/uL (4.30-5.70) Hemoglobin 15.1 g/dL (13.0-17.5) 14.7 g/dL (13.0-17.5) Hematocrit 44.2 % (39.0-53.0) 42.9 % (39.0-53.0) Mean Corpuscular Volume 96 fL (79-100) 95 fL (79-100) Mean Corpuscular Hemoglobin 33 pg (25-35) 33 pg (25-35) Mean Corpuscular Hemoglobin Concent 34 g/dL (31-37) 34 g/dL (31-37) Red Cell Distribution Width 12.8 % (11.5-14.5) 12.6 % (11.5-14.5) Platelet Count 132 x10^3/uL (140-400) 138 x10^3/uL (140-400) Neutrophils (%) (Auto) 65 % (31-73) 47 % (31-73) Lymphocytes (%) (Auto) 23 % (24-48) 36 % (24-48) Monocytes (%) (Auto) 7 % (0-9) 9 % (0-9) Eosinophils (%) (Auto) 5 % (0-3) 7 % (0-3) Basophils (%) (Auto) 1 % (0-3) 1 % (0-3) Neutrophils # (Auto) 2.5 x10^3uL (1.8-7.7) 1.8 x10^3uL (1.8-7.7) Lymphocytes # (Auto) 0.9 x10^3/uL (1.0-4.8) 1.4 x10^3/uL (1.0-4.8) Monocytes # (Auto) 0.3 x10^3/uL (0.0-1.1) 0.3 x10^3/uL (0.0-1.1) Eosinophils # (Auto) 0.2 x10^3/uL (0.0-0.7) 0.2 x10^3/uL (0.0-0.7) Basophils # (Auto) 0.0 x10^3/uL (0.0-0.2) 0.0 x10^3/uL (0.0-0.2) Sodium Level 139 mmol/L (136-145) Potassium Level 4.5 mmol/L (3.5-5.1) Chloride Level 103 mmol/L (98-107) Carbon Dioxide Level 27 mmol/L (21-32) Anion Gap 9 (6-14) Blood Urea Nitrogen 17 mg/dL (8-26) Creatinine 1.0 mg/dL (0.7-1.3) Estimated GFR (Cockcroft-Gault) 77.9 Glucose Level 117 mg/dL (70-99) Calcium Level 8.4 mg/dL (8.5-10.1) Laboratory Tests Test 08/10/18 03:15 White Blood Count 3.7 x10^3/uL (4.0-11.0) Red Blood Count 4.52 x10^6/uL (4.30-5.70) Hemoglobin 14.7 g/dL (13.0-17.5) Hematocrit 42.9 % (39.0-53.0) Mean Corpuscular Volume 95 fL (79-100) Mean Corpuscular Hemoglobin 33 pg (25-35) Mean Corpuscular Hemoglobin Concent 34 g/dL (31-37) Red Cell Distribution Width 12.6 % (11.5-14.5) Platelet Count 138 x10^3/uL (140-400) Neutrophils (%) (Auto) 47 % (31-73) Lymphocytes (%) (Auto) 36 % (24-48) Monocytes (%) (Auto) 9 % (0-9) Eosinophils (%) (Auto) 7 % (0-3) Basophils (%) (Auto) 1 % (0-3) Neutrophils # (Auto) 1.8 x10^3uL (1.8-7.7) Lymphocytes # (Auto) 1.4 x10^3/uL (1.0-4.8) Monocytes # (Auto) 0.3 x10^3/uL (0.0-1.1) Eosinophils # (Auto) 0.2 x10^3/uL (0.0-0.7) Basophils # (Auto) 0.0 x10^3/uL (0.0-0.2) Images Images Left foot x-rays show soft tissue swelling of 4th toe, but no bony destruction or evidence of osteomyelitis. LLE Doppler negative for deep vein thrombosis. Assessment/Plan Assessment/Plan Left fourth toe cellulitis. The patient is a 53 year old non-diabetic male with history of Athlete's foot. He used some OTC exfoliated cream last week and caused his toe to bleed, which caused his toe to become erythematous and swell. He has improved since being on IV antibiotics. He showed me pictures of his foot on his phone from when he was first admitted, which show the swelling and erythema have greatly improved since being admitted. At this time, no surgical intervention is necessary. Recommend continuing IV antibiotics and wound care. The patient states he has a followup appointment scheduled with his PCP, Dr. Alcocer, on 08/14/18. JOANNE MACK Aug 10, 2018 15:40
[2018-08-10] MEDS: ENOXAPARIN 40 MG/0.4 ML SYRINGE. SQ SCH (18:00)
[2018-08-10] MEDS: FLUCONAZOLE 200MG/100ML PREMIX 100 ML IV SCH (18:24)
[2018-08-10] MEDS: ALPRAZolam 0.5 MG TABLET PO PRN (22:42)
[2018-08-11] MEDS: PIPERACILLIN/TAZOBACTAM 3.375 GM in IV NORMAL SALINE 50ML 50 ML IV SCH ×2 (00:19→06:00)
[2018-08-11 01:13] LABS: HEMOGLOBIN A1C 5.7 % (4.8-5.6)
[2018-08-11 03:00] VITALS: BP 135/85
[2018-08-11 03:37] LABS: VANC TR 17.6 mcg/mL (10.0-20.0)
[2018-08-11] MEDS: VANCOMYCIN 1.5 GM in IV NORMAL SALINE 500ML BAG 500 ML IV SCH (03:56)
[2018-08-11] MEDS: VANCOMYCIN PER PHARMACY MC PRN (03:56)
[2018-08-11] MEDS: PANTOPRAZOLE 40 MG TABLET.DR. PO SCH (05:58)
[2018-08-11] MEDS: HYDROcodone/APAP 7.5/325MG 1 TAB TABLET PO PRN (05:59)
[2018-08-11 07:00] VITALS: BP 135/95
[2018-08-11 08:37] VITALS: BP 135/95
[2018-08-11] MEDS: LACTOBACILLUS RHAMNOSUS GG 1 CAPSULE. PO SCH (08:37)
[2018-08-11] MEDS: METOPROLOL SUCC 24HR ER 50 MG TAB.ER.24H. PO SCH (08:37)
[2018-08-11] MEDS: DOCUSATE SODIUM 100 MG CAPSULE. PO PRN (08:39)
[2018-08-11] MEDS ORDERED: AMOX1TAB61 PO (09:20)
[2018-08-11] MEDS ORDERED: FLUC150T PO (09:20)
--- NOTE | 2018-08-11 10:41 | PDOC ---
Infectious Disease Note Subjective Subjective pt is feeling better ROS ROS no n/v/d/sob Vital Sign Vital Signs Vital Signs Date Time Temp Pulse Resp B/P (MAP) Pulse Ox O2 Delivery O2 Flow Rate FiO2 08/11/18 08:37 65 135/95 08/11/18 08:00 Room Air 08/11/18 07:00 97.0 99 97.0 08/11/18 07:00 16 Physical Exam PHYSICAL EXAM GENERAL: The patient is propped up in bed and alert, in no apparent distress. VITAL SIGNS: Afebrile, HEENT: Pupils equally round. Normal conjunctivae. Oral cavity, pharynx pink and moist. NECK: Supple. LUNGS: Clear to auscultation. HEART: S1 and S2. ABDOMEN: Obese. Bowel sounds active. Soft and nontender. EXTREMITIES: Unremarkable except left lower extremity edema. A third right toe is swollen and red. He has maceration and some ulcerations between the toes with drainage. Dorsalis pedis pulse palpable. SKIN: Warm without generalized rash. NEUROLOGICAL: Alert and oriented. Labs Lab Laboratory Tests Test 08/11/18 02:30 Vancomycin Level Trough 17.6 mcg/mL (10.0-20.0) Vancomycin Last Dose Date [id number] Vancomycin Last Dose Time 1500 Micro ANAEROBIC-AEROBIC CULTURE PENDING ANAEROBIC RES 1 PENDING AEROBIC CULT PENDING AEROBIC RES 1 PENDING GRAM STAIN Final Final report GRAM STAIN RES 1 Final No organisms seen GRAM STAIN RES 2 Final Comment No white blood cells seen. Performed at: - [facility], [place], [place] [id number] Manager Money: GEOVANY Costa MD, Phone: [phone] Objective Assessment 1. Cellulitis of right foot. there is a wound on toe, depth cannot be judged 2. Tinea pedis. 3. Leukopenia. 4. Hypertension. Plan Plan of Care ok to d/c on po augmentin and diflucan f/u if needed, if not better then mri d/w pt and family JAVIER VELAZQUEZ MD Aug 11, 2018 10:41
== END 2018-08-11 11:01 | disposition home or self-care (01) | DRG 872 ==
LOC: ER 13:29 → 4 NORTH 15:16
PROVIDERS: ADMIT Family Medicine; ATTEND Family Medicine
DX: A41.9 Sepsis, unspecified organism (principal); L03.032 Cellulitis of left toe; B35.3 Tinea pedis; D72.819 Decreased white blood cell count, unspecified; E78.00 Pure hypercholesterolemia, unspecified; E78.5 Hyperlipidemia, unspecified; F17.210 Nicotine dependence, cigarettes, uncomplicated; I10 Essential (primary) hypertension; K21.0 Gastro-esophageal reflux disease with esophagitis; F41.9 Anxiety disorder, unspecified; G56.00 Carpal tunnel syndrome, unspecified upper limb; M19.042 Primary osteoarthritis, left hand; M19.041 Primary osteoarthritis, right hand; Z80.1 Family history of malignant neoplasm of trachea, bronchus and lung; Z82.49 Family history of ischemic heart disease and other diseases of the circulatory system; Z79.899 Other long term (current) drug therapy
CPT/HCPCS: 36415; 73630; 80048; 80053; 80202; 83036; 83605; 85025; 87040; 87071; 87075; 93971; 96365; 96375; J1450; J1650; J2543; J3010; J3370; J7040; 99285-25

== ENCOUNTER → 2021-06-12 | Outpatient (CLI) | payer BC ==
[2021-05-05 14:40] VITALS: BP 144/85
[~2021-06-12] MED LIST: ALPR0.5T PO; AMOX1TAB61 PO; ASPI325T8 PO; ATOR10TA PO; FLUC150T PO; Folic Acid PO; METO-269 PO; METO50TA4 PO; OMEP20TA63 PO; OXYC-325 PO; PSYL3.4P PO; REGADENOSON 0.4 MG/5 ML DISP.SYRIN. IV ONE; THIA100T22 PO
--- NOTE | 2021-06-12 14:30 | CARD ---
MR#: [id number] Date of Study: 06/12/2021 Ordering Physician: EDUARDA WILSON, Referring Physician: EDUARDA WILSON, Tech: Melissa Covington [facility] APPROVED REPORT EXAM: Two-dimensional and M-mode echocardiogram with Doppler and color Doppler. Other Information Quality : AverageHR: 74bpm INDICATION Arrhythmia Atrial Fibrillation RISK FACTORS Hypertension Hyperlipidemia Smoking 2D DIMENSIONS RVDd3.2 (2.9-3.5cm)Left Atrium(2D)2.9 (1.6-4.0cm) IVSd0.9 (0.7-1.1cm)Aortic Root(2D)3.5 (2.0-3.7cm) LVDd5.0 (3.9-5.9cm)LVOT Diameter2.0 (1.8-2.4cm) PWd0.9 (0.7-1.1cm)LVDs4.3 (2.5-4.0cm) FS (%) 15.3 %SV38.7 ml LVEF(%)32.3 (>50%) Aortic Valve AoV Peak Gonzalo.112.8cm/sAoV VTI20.7cm AO Peak GR.5.1mmHgLVOT Peak Gonzalo.100.7cm/s LVOT VTI 21.38cmAO Mean GR.3mmHg SHARI (VMAX)2.99uw7PJT (VTI)3.30cm2 Mitral Valve MV E Piunrejc61.5cm/sMV DECEL FDNG585tt MV A Xrrwrebg66.2cm/sMV E Mean Gr.2mmHg MV LAK88ztN/A Ratio0.8 MVA (PHT)2.83cm2 TDI E/Lateral E'5.2E/Medial E'7.7 Pulmonary Valve PV Peak Kyliqpbv30.0cm/sPV Peak Grad.3mmHg Tricuspid Valve TR P. Wwzquuaf000hu/sRAP YBMBWHNZ3eyFa TR Peak Gr.71rxZiGQDL79eiOn Pulmonary Vein S1 Ipsmhzdn13.3cm/sD2 Spswxuwd40.7cm/s PVa ryncqjxg103nihq LEFT VENTRICLE The left ventricle is normal size. There is normal left ventricular wall thickness. The left ventricu lar systolic function is normal and the ejection fraction is within normal range. The Ejection Fracti on is 50-55%. There is normal LV segmental wall motion. Transmitral Doppler flow pattern is Grade I-a bnormal relaxation pattern. RIGHT VENTRICLE The right ventricle is normal size. There is normal right ventricular wall thickness. The right ventr icular systolic function is normal. ATRIA The left atrium size is normal. The right atrium size is normal. The interatrial septum is intact wit h no evidence for an atrial septal defect or patent foramen ovale as noted on 2-D or Doppler imaging. AORTIC VALVE The aortic valve is normal in structure and function. Doppler and Color Flow revealed no significant aortic regurgitation. There is no significant aortic valvular stenosis. Calculated aortic valve area is 2.59 cm2 with maximum pressure gradient of 6 mmHg and mean pressure gradient of 3 mmHg. MITRAL VALVE The mitral valve is normal in structure and function. There is no evidence of mitral valve prolapse. There is no mitral valve stenosis. Doppler and Color-flow revealed trace mitral regurgitation. TRICUSPID VALVE The tricuspid valve is normal in structure and function. Doppler and Color Flow revealed trace tricus pid regurgitation with an estimated 31 mmHg. There is no tricuspid valve stenosis. PULMONIC VALVE The pulmonic valve is not well visualized. Doppler and Color Flow revealed trace pulmonic valvular re gurgitation. There is no pulmonic valvular stenosis. GREAT VESSELS The aortic root is normal in size. The ascending aorta is normal in size. The IVC is normal in size a nd collapses >50% with inspiration. PERICARDIAL EFFUSION There is no evidence of significant pericardial effusion. Critical Notification Critical Value: No <Conclusion> The left ventricular systolic function is normal and the ejection fraction is within normal range. Th e Ejection Fraction is 50-55%. There is normal LV segmental wall motion. Signed by : Andrew Malik, Electronically Approved : 06/12/2021 14:30:36
--- NOTE | 2021-06-12 16:34 | RAD ---
MR#: [id number] Date of Study: 06/12/2021 Ordering Physician: EDUARDA WILSON, Referring Physician: ELIJAH SUGGS Tech: RT Elmer Diego) (N) APPROVED REPORT Test Type: Pharmacological Stress Nurse/Tech: Jamila Bernal R.N. Test Indications: atrial flutter Cardiac History: htn, smoker Medications: see ehr Medical History: see ehr Resting ECG: sr with pacs Resting Heart Rate: 135 bpm Resting Blood Pressure: 160/98mmHg Pretest Chest Pain: No chest pain Nurse/Tech Notes lungs cta, heart tones regular Consent: The procedure was explained to the patient in lay terms. Informed consent was witnessed. Jacky eout was entered into [employer]. History and Stress Test performed by RT Elmer Christian) (N) Pharm. Details Pharmacologic stress testing was performed using 0.4mg per 5ml of regadenoson given intravenously ove r 7-10 seconds. Stress Symptoms No chest pain or symptoms. POST EXERCISE Reason for Termination: Infusion complete Target HR: No Max HR: 135 bpm Max Blood Pressure: 171/110mmHg Chest Pain: No. Arrhythmia: No. ST Change: No. INTERPRETATION Stress EKG Conclusion: No evidence of stress induced EKG changes. Imaging Protocol IMAGE PROTOCOL: Rest Tc-99m/stress Tc-99m 1 day Rest: Stress: Viability: Radiopharm.Tc99m AspsszegnIs39g Sestamibi Dose10.5mCi 32.7mCi Duration 15min. 15min. Img Date 06/12/2021 06/12/2021 Inj-Img [id number]. 60min. Rest Admin Site:IV - Left AntecubitalAdministrator:RT Elmer Diego)(N) Stress Admin Site: IV - Left AntecubitalAdministrator: RT Elmer Christian)(N) STRESS DATA End Diast. Vol.60.0mlAv. Heart Rate99.0bpm End Syst. Vol.3.0mlCO Index BSA0.0L/min Myocardial Zzjm972.0gEject. Dvwkemth84.0% Stress Rates Pk. Fill Rate4.14EDV/secLVtime Pk. Fill 148.62msec Pk. Empty Rate5.68ESV/secLVtime Pk. Eject80.83msec 11/12 Pk. Fill1.49EDV/sec Stress Scores Regional WT0.00Summed WT0.00 Regional WM0.00Summed WM0.00 The rest and stress images show normal perfusion, normal contraction and thickening. LV Perf. Quant 17 Seg. SSS0.00 17 Seg. SRS0.00 17 Seg. SDS0.00 Stress Defect Extent (% LAD)0.00Rest Defect Extent (% LAD)0.00Rev. Defect Extent (% LAD)0.00 Stress Defect Extent (% LCX) 0.00Rest Defect Extent (% LCX)5.00Rev. Defect Extent (% LCX)0.00 Stress Defect Extent (% RCA)0.00Rest Defect Extent (% RCA)0.00Rev. Defect Extent (% RCA)0.00 Stress Defect Extent (% BYRON)0.00Rest Defect Extent (% BYRON)0.90Rev. Defect Extent (% BYRON)0.00 Other Information Quality:Average Risk Assessment: Low Risk Conclusion 1. No evidence of EKG changes with stress testing. 2. Normal perfusion at stress/rest. 3. Low risk study. 4. EF > 60%. Signed by : Andrew Malik, Electronically Approved : 06/12/2021 16:34:34
== END ==
LOC: NM 07:55
PROVIDERS: ATTEND Internal Medicine Cardiovascular Disease
DX: I48.92 Unspecified atrial flutter (principal); I10 Essential (primary) hypertension; F17.200 Nicotine dependence, unspecified, uncomplicated
CPT/HCPCS: 78452; 93017; 93306; A9500; J2785

== ENCOUNTER → 2021-07-02 | Outpatient (CLI) | payer BC ==
[2021-05-05 14:40] VITALS: BP 144/85
[~2021-07-02] MED LIST changes: -REGADENOSON 0.4 MG/5 ML DISP.SYRIN. IV ONE
--- NOTE | 2021-07-03 10:19 | SLEEP ---
DATE OF STUDY: 07/02/2021 HOME SLEEP STUDY ATTENDING PHYSICIAN: Lon Alccoer MD. The patient is 56 years old, who weighs 200 pounds with a BMI of 27.9. The patient's Sunman score was 12. The patient underwent home sleep study, performed at [facility]. Total recording time was 875 minutes. During the night study, the patient had 27 central apneas, 17 obstructive apneas, 12 mixed apneas and 70 hypopneas. The patient's AHI was 17 per hour. Nocturnal oximetry study revealed an average oxygen saturation of 93% with a lowest of 82%. Seven minutes were spent with oxygen saturation less than 90%. Mean heart rate 72 beats per minute. IMPRESSION: 1. Moderate obstructive sleep apnea at an AHI of 17 per hour. 2. Mild nocturnal hypoxia secondary to obstructive sleep apnea. RECOMMENDATIONS: 1. The patient would benefit from treatment of sleep apnea with CPAP. 2. Once the patient is optimally treated with CPAP, then follow up in 4-6 weeks to assess compliance and to document clinical improvement. 3. Weight loss is advised. 4. Avoid [employer] depressants. 5. Cautioned regarding driving until symptoms of sleep apnea resolve with above recommendations. HAZEL DR: [place] TID: [id number] CC: LON ALCOCER MD
== END ==
LOC: RT 12:00
PROVIDERS: ATTEND Internal Medicine Cardiovascular Disease
DX: G47.33 Obstructive sleep apnea (adult) (pediatric) (principal); R09.02 Hypoxemia
CPT/HCPCS: G0399